=== PATIENT | male | born 1945 | race Caucasian/White ===

== ENCOUNTER 2017-10-28 07:09 | Day surgery (SDC) | payer MEDICARE ==
[~2017-10-28] VITALS: Ht 162.6 cm; Wt 87.5 kg
[2017-10-28] MEDS ORDERED: BAYER CHEWABLE81 MG PO (07:55)
[2017-10-28] MEDS ORDERED: ZYLOPRIM100 MG PO (07:55)
[2017-10-28] MEDS ORDERED: OMEPRAZOLE20 M1 PO (07:55)
[2017-10-28] MEDS ORDERED: BUMEX2 MG (07:56)
[2017-10-28] MEDS ORDERED: HUMULIN 70100 UNIT/1 (07:56)
[2017-10-28] MEDS ORDERED: LEVOXYL25 MCG (07:57)
[2017-10-28] MEDS ORDERED: HUMULIN 70100 UNIT/1 SC (07:57)
[2017-10-28] MEDS ORDERED: DIALYVITE (07:58)
[2017-10-28] MEDS ORDERED: COREG25 MG PO (07:58)
[2017-10-28] MEDS ORDERED: RENVELA800 MG PO (07:59)
[2017-10-28] MEDS ORDERED: ULTRAM50 MG PO ×2 (07:59→12:33)
[2017-10-28 08:21] VITALS: BP 134/70; Ht 162.6 cm; Wt 87.5 kg
[2017-10-28 08:21] LABS: BASOPHILS 0.3 % (0-2); EOSINOPHILS 2.4 % (0-7); HEMATOCRIT 44.7 % (42.0-54.0); HEMOGLOBIN 14.7 g/dL (13.5-17.5); IMMATURE GRANULOCYTES 0.3 % (0-5); MCH 30.6 pg (26.0-34.0); MCHC 32.9 g/dL (31.0-37.0); MCV 92.9 fL (80.0-100.0); MEAN PLATELET VOLUME 11.8 fL (7.4-10.4); MONOCYTES 8.1 % (2-11); NEUTROPHILS 64.9 % (40-80); PLATELET COUNT 178 10x3/uL (130-400); RBC 4.81 10x6/uL (4.20-6.10); RDW 14.9 % (11.5-14.5); WBC 7.8 10x3/uL (4.8-10.8)
[2017-10-28 08:35] LABS: APTT 28.5 SECONDS (22.8-39.4); INR 1.05 (0.85-1.17); PROTIME 13.5 SECONDS (11.6-15.0)
[2017-10-28 08:40] LABS: ANION GAP 12.6 mmol/L (8-16); CALCIUM 11.4 mg/dL (8.5-10.1); CARBON DIOXIDE 27.2 mmol/L (21.0-32.0); CREATININE - SERUM 3.4 mg/dL (0.6-1.3); POTASSIUM - SERUM 3.8 mmol/L (3.5-5.1)
--- NOTE | 2017-10-28 14:04 | NUR ---
1335 SERVED RENAL DIABETIC FULL LIQUID DIET. AWAKE & ALERT WITH FAMILY @ BEDSIDE. Yakov ARRIAZA R.N.
--- NOTE | 2017-10-28 14:45 | NUR ---
1430 UP IN WHEECHAIR. ASSISTED IN DRESSING. NO CHANGE TO DRESSING TO RIGHT ARM. NO SWELLING OR BLEEDING NOTED OTHER THAN INITAL SMALL SPOT OF BLLOD. RIGHT ARM REMAINS NUMB & IN SLING. PT AWAKE & ALERT. GIVEN RX: ULTRAM, MED REC., RTC APPT., & [facility] OPS D/C INSTRUCTIONS. PT & VOICED UNDERSTANDING. TO PRIVATE CAR PER WHEELCHAIR. HOME WITH MRS. COELHO. Yakov ARRIAZA R.N.
--- NOTE | 2017-11-11 12:00 | OP ---
PATIENT NAME: EDINSON COELHO MEDICAL RECORD: [id number] :44 LOCATION:[facility] ADMISSION DATE: SURGEON: ERNESTINE CIFUENTES MD DATE OF OPERATION: 10/28/2017 REFERRING PHYSICIAN: Dr. Blum. PREOPERATIVE DIAGNOSES: End-stage renal disease, N18.6 and dependence on dialysis, Z99.2. POSTOPERATIVE DIAGNOSES: End-stage renal disease, N18.6 and dependence on dialysis, Z99.2. OPERATION PERFORMED: Ena brachial basilic vein AV fistula. SURGEON: Ernestine Cifuentes MD ANESTHESIA: Regional nerve block and general with LMA per LIFT MANAGER. PREOPERATIVE NOTE: Mr. Mcdermott is a 71-year-old diabetic male with chronic renal insufficiency who is anticipated to require dialysis. He was referred to me for provision of long-term dialysis access. It is believed that he has time to mature fistula. His preoperative venous mapping demonstrates very poor veins, but it is thought that the basilic vein on the right may be usable. Under anesthesia in supine position, the patient was prepped and draped in sterile manner. I examined him with duplex ultrasound using a proximal venous tourniquet and after applying nitroglycerin to the surface of the skin of the arm and forearm, he really had no usable veins other than the basilic vein, which represented the junction of the true basilic and the median cubital just above the antecubital space where it was about 4 mm in diameter. The median cubital branch was about 3 mm in diameter and I elected to go ahead and use that to create a primary fistula. I made a transverse incision across the antecubital space with a hockey stick shaped incision to start upwards on the medial aspect of the arm. The brachial artery was exposed and controlled with Silastic loops. The basilic vein and the median cubital vein were exposed and controlled with loops and tributaries were divided between clips and Vicryl ligatures. The vein was closed distally with Hemoclips. It was then transected and bevelled, flushed and dilated with heparin and saline solution and hydrostatic pressure. The valves were competent and it was not necessary to clamp the vein to prevent backbleeding. The artery was occluded with loops and incised for a distance of about 4 mm. The artery was flushed proximally and distally with heparinized saline. No other anticoagulant was used systemically. The anastomosis end of vein to side of artery was then performed with running 7-0 Prolene. When completed and the occluding loops were released, excellent flow developed immediately in the new fistula. The suture line was hemostatic and there was good pulsatile polyphasic flow in the distal brachial artery and in the radial and ulnar arteries at the wrist as demonstrated with handheld Doppler. The wound was irrigated with Ancef/gentamicin solution and then closed with interrupted inverted 3-0 Vicryl and then running intracuticular 4-0 Monocryl and Dermabond glue. A dressing of Maxorb Ag, Tegaderm, and Cavilon skin prep was applied. OPERATIVE REPORT [id number] EDINSON COELHO PLAN: The patient will go home today. He will have a prescription for 20 tramadol 50 mg tablets. He can take 1 every 4 hours p.r.n. for pain. He will resume activities and all of his same home medications as tolerated and resume his diet as tolerated. He is to return to see me in my office next week for followup visit. As I said above, I will plan to return him to the operating room in 2-4 weeks either for second stage conversion to a brachial artery to translocated basilic vein AV fistula or for implantation of a vascular graft. There was no blood loss during the procedure. All sponges, instruments and needles were accounted for. No drain was used and no surgical specimen was submitted for histopathology. TRANSINT:[id number] Voice Confirmation ID: [id number] DOCUMENT ID: [id number] ERNESTINE CIFUENTES MD at 1200 CC: [id number] DICTATION DATE: 10/28/17 1255 RESEARCH DIETITIAN: 10/28/17 1621 [facility] 10/28/17 [facility] [address] [id number]
== END 2017-10-28 14:30 | disposition home or self-care (01) ==
LOC: D.OPS 07:09
PROVIDERS: Surgery
DX: E13.22 Other specified diabetes mellitus with diabetic chronic kidney disease (principal); N18.6 End stage renal disease; Z99.2 Dependence on renal dialysis; Z01.812 Encounter for preprocedural laboratory examination

== ENCOUNTER 2017-11-22 09:13 | Day surgery (SDC) | payer MEDICARE ==
[~2017-11-22] VITALS: Ht 162.6 cm; Wt 89.5 kg
[~2017-11-22 09:13] MED LIST: BAYER CHEWABLE81 MG PO; BUMEX2 MG; COREG25 MG PO; DIALYVITE; HUMULIN 70100 UNIT/1; HUMULIN 70100 UNIT/1 SC; LEVOXYL25 MCG; OMEPRAZOLE20 M1 PO; RENVELA800 MG PO; ULTRAM50 MG PO; ZYLOPRIM100 MG PO
[2017-11-22 09:54] LABS: BASOPHILS 0.1 % (0-2); EOSINOPHILS 2.8 % (0-7); HEMATOCRIT 42.3 % (42.0-54.0); HEMOGLOBIN 13.9 g/dL (13.5-17.5); IMMATURE GRANULOCYTES 0.1 % (0-5); LYMPHOCYTES 22.5 % (15-50); MCHC 32.9 g/dL (31.0-37.0); MCV 94.2 fL (80.0-100.0); MEAN PLATELET VOLUME 10.9 fL (7.4-10.4); MONOCYTES 8.2 % (2-11); NEUTROPHILS 66.3 % (40-80); PLATELET COUNT 152 10x3/uL (130-400); RBC 4.49 10x6/uL (4.20-6.10); RDW 14.9 % (11.5-14.5); WBC 6.7 10x3/uL (4.8-10.8)
[2017-11-22 10:05] LABS: INR 1.01 (0.85-1.17); PROTIME 12.9 SECONDS (11.6-15.0)
[2017-11-22 10:09] LABS: ALBUMIN 3.4 g/dL (3.4-5.0); ANION GAP 12.3 mmol/L (8-16); BILIRUBIN - TOTAL 0.5 mg/dL (0.2-1.3); CALCIUM 11.5 mg/dL (8.5-10.1); CARBON DIOXIDE 27.8 mmol/L (21.0-32.0); CREATININE - SERUM 5.3 mg/dL (0.6-1.3); POTASSIUM - SERUM 4.1 mmol/L (3.5-5.1); PROTEIN - SERUM 7.8 g/dL (6.4-8.2)
--- NOTE | 2017-11-22 10:24 | NUR ---
1000 PATIENT ARRIVED TO ROOM VIA WHEELCHAIR. PATIENT ALERT/ORIENTED. MULITIPLE FAMILY PRESENT IN ROOM WITH PATIENT. NO DISTRESS. DIALYSIS ASSESS IS CLOTTED. PATIENT SITTING ON BED. CALL LIGHT WITHIN REACH.
--- NOTE | 2017-11-22 10:32 | NUR ---
CONSENTS SIGNED AND ON THE CHART. VICKY HERE FROM SURGERY AND STATES THAT SURGERY WILL DO EKG, PREOP AND START IV ON PATIENT. UZIEL AQUINO HERE AT BEDSIDE ALSO. NO DISTRESS.
--- NOTE | 2017-11-22 10:35 | NUR ---
PATIENT LEAVING UNIT VIS BED AT THIS TIME FOR SURGERY. NO DISTRESS UPON LEAVING UNIT.
--- NOTE | 2017-11-22 10:40 | NUR ---
PATIENT TAKEN TO SURGERY LESS THAN 20 MINUTES OF ARRIVING TO FLOOR. UNABLE TO COMPLETE ALL AREAS OF ASSESSMENT AT THIS TIME.
--- NOTE | 2017-11-22 12:38 | NUR ---
RECEIVED REPORT FROM KRISTOPHER IN RECOVERY. PATIENT BACK TO UNIT SOON. HEMESPLIT EXCHANGE TOLERATED WELL. OLD HEMESPLIT TO RIGHT UPPER CHEST REMOVED AND NEW HEMESPLIT PLACED TO SAME AREA OF RIGHT CHEST.
--- NOTE | 2017-11-22 12:54 | NUR ---
PATIENT RETURN TO UNIT AT THIS TIME, AWAKE/ORIENTED. FAMILY AT BEDSIDE. NO DISTRESS.
[2017-11-22 13:00] VITALS: BP 133/74
[2017-11-22 13:15] VITALS: BP 133/74; Ht 162.6 cm; Wt 89.5 kg
--- NOTE | 2017-11-22 13:20 | NUR ---
NO BLEEDING FROM NEW HEMESPLIT PLACEMENT. SITTING IN BED COMSUMING NOON MEAL. FAMILY ATBEDSIDE. NO DISTRESS.
--- NOTE | 2017-11-22 13:58 | NUR ---
PATIENT LEFT UNIT VIA WHEELCHAIR AT THIS TIME FOR DIALYSIS. NO DISTRESS UPON LEAVING THE UNIT.
--- NOTE | 2017-11-22 17:36 | NUR ---
1710 20 GAUGE IV REMOVED FROM LEFT WRIST. CATHETER TIP INTACT. NO BLEEDING FROM SITE. 2X2 GAUZE APPLIED AND SECURED WITH TAPE. 1720 DISCHARGE INSTRUCTIONS PROVIDED TO PATIENT AND HIS . VERBALIZED UNDERSTANDING OF ALL INSTRUCTIONS PROVIDED. 1735 PATIENT LEFT UNIT VIA PERSONAL WHEELCHAIR WITH ALL PERSONAL BELONGINGS. NO DISTRESS UPON LEAVING UNIT.
[2017-11-26 11:13] LABS: HEPATITIS C ANTIBODY <0.1 (0.0-0.9)
--- NOTE | 2017-12-12 15:11 | OP ---
PATIENT NAME: EDINSON COELHO MEDICAL RECORD: [id number] :44 LOCATION:[facility] ADMISSION DATE: SURGEON: ERNESTINE CIFUENTES MD DATE OF OPERATION: 11/22/2017 REFERRED BY: Kvng Carey MD PREOPERATIVE DIAGNOSES: Nonfunctioning right internal jugular tunneled dialysis catheter, ICD-10 T82.49XA, additionally end-stage renal disease, on dialysis N18.6 and dependence on renal dialysis Z99.2. OPERATION PERFORMED: Tunneled dialysis catheter exchange under fluoroscopy with superior vena cavogram. SURGEON: Ernestine Cifuentes MD ANESTHESIA: TIVA per INTERNET SYSTEMS ADMINISTRATOR plus local. PREOPERATIVE NOTE: Mr. Coelho is a 71-year-old white male patient on dialysis and catheter dependent with a right internal jugular tunneled dialysis catheter, which is not functioning. He is not dialyzed since Friday of this week and is brought now to the operating room and indeed to the hospital today as an outpatient for outpatient observation status and for surgery to replace his nonfunctioning catheter and allow him to dialyze today. Under TIVA in supine position, the patient was prepped and draped in a sterile manner. Local anesthetic 1% lidocaine without epinephrine was infiltrated into the skin and subcutaneous tissues surrounding the catheter exit site in the right upper anterior chest. Blunt dissection with a hemostat was then used to free the subcutaneous Dacron Fairview cuff and free the catheter. The skin stitches were removed and a Roadrunner 0.035 guidewire was inserted through the venous limb of the catheter and under fluoroscopy advanced into the inferior vena cava. The catheter was then backed out and then contrast injection performed to visualize the brachiocephalic vein and superior vena cava and right atrium. I saw no fibrin sheath or evidence of serious venous thrombosis. The catheter was then removed leaving the guidewire in place. Hemostasis was easily achieved with pressure on the catheter tract. A new 23-cm long HemoSplit tunneled dialysis catheter was then inserted over the guidewire, a little more deeply than the previous catheter had been, its tip positioned well down into the right atrium. The catheter was accessed and both lumens noted to return blood on aspiration very easily. They flushed with saline very easily. They were then heparin-locked and capped and clamped. The catheter was sutured to the skin near the entry site with 2-0 Prolene and a sterile dressing including chlorhexidine, Biopatch were applied. The patient then in stable condition was taken to the recovery room. He will go back to [facility] 2 observation following that. We will have dialysis today before being discharged later today. When he goes home, he will continue his same medications and diet and his routine dialysis schedule. No new prescriptions are provided today. There was no blood loss during the procedure. All sponges, instruments and needles were accounted for. No drain was used and no surgical specimen was submitted for histopathology. TRANSINT:[id number] Voice Confirmation ID: [id number] DOCUMENT ID: [id number] OPERATIVE REPORT [id number] EDINSON COELHO JAMES MD at 1511 CC: KVNG CAREY MD [id number] DICTATION DATE: 11/22/17 1257 SECRETARY: 11/22/17 1325 [facility] 11/22/17 [facility] [address] [place] [address]
== END 2017-11-22 17:40 | disposition home or self-care (01) ==
LOC: OBSVTIME → D.OPS 09:13 → D.M2 09:13 → D.OPS 12:20 → D.M2 12:20 → OBSVTIME 12:21 → D.M2 17:40 → D.OPS 17:40 → D.M2 17:40
PROVIDERS: Internal Medicine Nephrology
DX: T82.49XA Other complication of vascular dialysis catheter, initial encounter (principal); N18.6 End stage renal disease; Z99.2 Dependence on renal dialysis; Z01.812 Encounter for preprocedural laboratory examination

== ENCOUNTER 2017-12-16 05:21 | Day surgery (SDC) | payer MEDICARE ==
[2017-12-15 14:17] LABS: BASOPHILS 0.2 % (0-2); EOSINOPHILS 5.5 % (0-7); HEMATOCRIT 40.2 % (42.0-54.0); IMMATURE GRANULOCYTES 0.2 % (0-5); LYMPHOCYTES 20.8 % (15-50); MCH 30.5 pg (26.0-34.0); MCHC 32.3 g/dL (31.0-37.0); MCV 94.4 fL (80.0-100.0); MEAN PLATELET VOLUME 10.6 fL (7.4-10.4); MONOCYTES 8.9 % (2-11); NEUTROPHILS 64.4 % (40-80); PLATELET COUNT 143 10x3/uL (130-400); RBC 4.26 10x6/uL (4.20-6.10); RDW 14.8 % (11.5-14.5); WBC 5.4 10x3/uL (4.8-10.8)
[2017-12-15 14:29] LABS: ANION GAP 10.4 mmol/L (8-16); CALCIUM 9.6 mg/dL (8.5-10.1); CREATININE - SERUM 2.7 mg/dL (0.6-1.3); POTASSIUM - SERUM 3.4 mmol/L (3.5-5.1)
[2017-12-15 14:30] LABS: APTT 30.8 SECONDS (22.8-39.4); INR 1.04 (0.85-1.17); PROTIME 13.2 SECONDS (11.6-15.0)
[~2017-12-16] VITALS: Ht 162.6 cm; Wt 85.3 kg
--- NOTE | ~2017-12-16 | OP ---
PATIENT NAME: EDINSON COELHO MEDICAL RECORD: [id number] :44 LOCATION:[facility] ADMISSION DATE: SURGEON: ERNESTINE CIFUENTES MD DATE OF OPERATION: 12/16/2017 REFERRING PHYSICIAN: Kyle Ramirez MD PREOPERATIVE DIAGNOSES: End-stage renal disease and dependence on hemodialysis. PREOPERATIVE NOTE: Mr. Coelho is a 72-year-old white male patient with end-stage renal disease. He is from [place], [place]. He has had a prior Ena type brachial basilic AV fistula performed as a preparation or first stage for eventual creation of a translocated brachiobasilic AV fistula. He is returned to the operating room for that now. DESCRIPTION OF PROCEDURE: Under general anesthesia, the patient was prepped and draped in sterile manner. A long incision was made on the medial aspect of the arm and the basilic vein freed from the surrounding structures. It was a little smaller than I had expected it to be and I suspect that there was an arterial anastomotic stenosis and I planned then to move the arterial anastomosis proximally on the brachial artery. The vein and artery were exposed and treated with topical papaverine. The vein was clamped, divided, bevelled, and distally ligated near the arterial anastomosis. The vein was pulled through anterior very superficial subcutaneous tunnel and then appropriately oriented, flushed again with heparinized saline. The artery was occluded and then flushed proximally and distally with heparinized saline and an end-to-side anastomosis performed end of vein to side of artery with a 7-0 running Prolene. At completion of the anastomosis, the clamps and loops were released and excellent flow was established in the new fistula and the suture line was hemostatic. The wound was closed without the use of a drain. It was irrigated with Ancef and gentamicin solution and closed in layers with interrupted 3-0 Vicryl and running intracuticular 4-0 Monocryl, Dermabond glue, Maxorb Ag, Tegaderm, and Cavilon skin prep. The patient was awakened and taken to the recovery room in stable condition. PLAN: The patient could go home today and return to see me in my office next week and leave the original dressing intact until that time. TRANSINT:[id number] Voice Confirmation ID: [id number] DOCUMENT ID: [id number] ERNESTINE CIFUENTES MD at 1019 CC: KYLE RAMIREZ [id number] DICTATION DATE: 01/04/18 1442 EMERGENCY ROOM CLINICIAN: 01/04/18 1530 [facility] 12/16/17 [place] [place] [id number] [place] [id number]
[2017-12-16 06:57] VITALS: BP 129/58; Ht 162.6 cm; Wt 85.3 kg
[2017-12-16] MEDS ORDERED: HYDROCODON-ACE1 EAC7 PO (13:01)
== END 2017-12-16 14:40 | disposition home or self-care (01) ==
LOC: D.OPS 05:21
PROVIDERS: Anesthesiology
DX: N18.6 End stage renal disease (principal); Z01.812 Encounter for preprocedural laboratory examination